=== PATIENT | male | born 1990 | race Caucasian/White ===

== ENCOUNTER 2016-12-08 08:44 | Emergency (ER) | payer OTHER ==
[2016-12-08 09:03] LABS: % IMMATURE GRANULYOCYTES 0.9 % (0.0-1.1); ABSOLUTE IMMATURE GRANULOCYTES 0.17 10^3/uL (0.00-0.10); ADD DIFF? NO; ADD MORPH? NO; ADD SCAN? NO; ATYPICAL LYMPHOCYTE FLAG 10 (0-99); FRAGMENT RBC FLAG 0 (0-99); HEMOGLOBIN 17.8 g/dL (13.7-17.5); LEFT SHIFT FLG 10 (0-99); LIPEMIA HEMOLYSIS FLAG 80 (0-99); MEAN CELL HEMOGLOBIN 33.3 pg (27.9-34.1); MEAN CELL HEMOGLOBIN CONCENTR. 33.6 g/dL (32.4-36.7); MEAN CELL VOLUME 99.3 fL (81.5-99.8); MEAN PLATELET VOLUME 10.3 fL (8.7-11.7); PLATELET CLUMPS FLAG 0 (0-99); PLATELET COUNT 426 10^3/uL (150-400); RED BLOOD CELL COUNT 5.34 10^6/uL (4.40-6.38); RED CELL DISTRIBUTION WIDTH 12.4 % (11.5-15.2)
[2016-12-08] MEDS ORDERED: LET GEL TOPICAL 1 EA SYR TP ONE (09:06)
[2016-12-08 09:21] LABS: ANION GAP 32 mEq/L (8-16); CALCIUM 10.1 mg/dL (8.5-10.4); CARBON DIOXIDE 10 mEq/l (22-31); CHLORIDE 101 mEq/L (97-110); CREATININE 1.3 mg/dL (0.7-1.3); GLOMERULAR FILTRATION RATE > 60; GLUCOSE 261 mg/dL (70-100); POTASSIUM 3.7 mEq/L (3.5-5.2); SODIUM 143 mEq/L (134-144)
--- NOTE | 2016-12-08 09:21 | CPEKG ---
Heart Rate: 108 RR Interval: 556 P-R Interval: 128 QRSD Interval: 76 QT Interval: 336 QTC Interval: 451 P [place]: 62 QRS [place]: 65 T Wave [place]: 48 EKG Severity - OTHERWISE NORMAL ECG - EKG Impression: SINUS TACHYCARDIA EKG Impression: ST ELEV, PROBABLE NORMAL EARLY REPOL PATTERN Electronically Signed By: Kaveh Mosley 08-Dec-2016 09:31:21
--- NOTE | 2016-12-08 09:30 | EDPHY ---
H & P Stated Complaint: AMS, MECH FALL, ABRASIONS - Personal History Current Tetanus/Diphtheria Vaccine: Unsure - Medical/Surgical History Hx Asthma: No Hx Chronic Respiratory Disease: No Hx Diabetes: No Hx Cardiac Disease: No Hx Renal Disease: No Hx Cirrhosis: No Hx Alcoholism: No Hx HIV/AIDS: No Hx Splenectomy or Spleen Trauma: No - Social History Smoking Status: Current every day smoker <Kaveh Mosley - Last Filed: 12/08/16 13:00> <Karlo Strickland - Last Filed: 12/08/16 17:30> Time Seen by Provider: 12/08/16 08:54 HPI/ROS: Chief complaint: Fall History of present illness: This is a 26-year-old male who presents to the emergency department with EMS for evaluation of fall. Patient reports he was standing, smoking a cigarette when he started to get lightheaded and started to fall forward, passed out and struck the front of his body against the ground. Girlfriend her this and came in and saw patient, she was concerned he may have had seizure activity. On my evaluation patient does seem tired. He states he hurts all over. He does admit to drinking alcohol and using cocaine last night. Denies other associated signs or symptoms. Review of systems: A 10 point review of systems was obtained and other than described above was negative (Karlo Strickland) - Physical Exam Exam: General Appearance: Alert, nontoxic. Eyes: Pupils equal and round no pallor or injection. ENT, Mouth: Mucous membranes moist. Respiratory: There are no retractions, lungs are clear to auscultation. Cardiovascular: Regular rate and rhythm. Gastrointestinal: Abdomen is soft and non tender, no masses, bowel sounds normal. Neurological: Alert and oriented x4. Cranial nerves 2-12 grossly intact. Strength and sensation intact and symmetrical. No meningismus. He is ambulating well. Skin: Warm and dry, no rashes. Musculoskeletal: Neck is supple non tender. Extremities are symmetrical, full range of motion. Psychiatric: Patient is oriented X 3, there is no agitation. (Karlo Strickland) Constitutional: Initial Vital Signs Temperature (C) 37.2 C 12/08/16 08:48 Heart Rate 114 H 12/08/16 08:48 Respiratory Rate 16 12/08/16 08:48 Blood Pressure 127/84 H 12/08/16 08:48 O2 Sat (%) 94 12/08/16 08:48 O2 Delivery Mode Room Air Allergies/Adverse Reactions: No Known Allergies Allergy (Unverified 12/08/16 08:48) Home Medications: Medication Instructions Recorded NK [No Known Home Meds] 12/08/16 Medical Decision Making <Kaveh Mosley - Last Filed: 12/08/16 13:00> - Diagnostics Imaging: Discussed imaging studies w/ calliope player Radiologist <Karlo Strickland - Last Filed: 12/08/16 17:30> - Diagnostics EKG Interpretation: EKG: Complete interpretation has been separately recorded in the [employer] archive. Summary impression: Sinus tachycardia, rate 108 (Kaveh Mosley) Imaging Results: Imaging Impressions Cervical Spine CT 12/08/16 08:58 Impression: 1. No definite fracture. 2. If there is persistent pain or neurological deficit, recommend MR cervical spine and consider flexion and extension views, if clinically indicated. Findings and recommendations discussed with Emergency Department physician, RUDY Nelson at 1009 hours at December 08, 2016. Final report concurs with initial preliminary interpretation. Head CT 12/08/16 08:58 Impression: 1. Normal CT brain without contrast. 2. Consider MRI of the brain without and with contrast enhancement, if there is continued clinical concern. Findings and recommendations discussed with Emergency Department physician, RUDY Nelson at 1008 hours December 08, 2016. Final report concurs with initial preliminary interpretation. ED Course/Re-evaluation: Patient seen in conjunction with my secondary supervising physician Dr. Hernandez Mosley. Patient presents to the emergency department after apparently passing out and falling. Ultimately there is concern patient had a seizure. No significant findings requiring further evaluation of seizures in hospital. He does have multiple abrasions and is complaining of pain at certain sites including his toes, I have offered x-rays but he has declined. I have discussed with patient I am concerned he had a seizure. He knows he has to follow-up with Neurology. We have discussed seizure precautions. With his permission I have discussed findings with his parents and his girlfriend, and they will help arrange follow-up. Patient voiced understanding and agreement with plan. (Karlo Strickland) Differential Diagnosis: Included but not limited to mechanical fall, syncope of multiple etiologies including hypovolemia, drug abuse, cardiac dysrhythmia, electrolyte disturbances , seizures of multiple etiologies (Karlo Strickland) Other Provider: INDEPENDENT PHYSICIAN DOCUMENTATION I evaluated and participated in the management of the patient. I also evaluated the patient independently. My co-signature indicates that I have reviewed this chart and I agree with the findings and plan of care as documented. My personal H&P findings include: Patient presents to the emergency department after unwitnessed seizure verses syncopal episode. The patient reportedly was standing smoking a cigarette when he collapsed falling forward striking his lip. The patient presents to the ED with complaints of pain and swelling to his lip, slight headache and a sensation of generalized malaise. The patient does report not having much to eat or drink over the past day. The patient reportedly was "up dancing all night." The patient does report using cocaine last night. PHYSICAL EXAM General Appearance: Alert, no distress Head: Soft tissue swelling noted to upper lip, multiple superficial abrasions, no hematoma Eyes: Pupils equal, round, reactive ENT, Mouth: No hemotympanum, no oral trauma, no gingival laceration Neck: Nontender, trachea midline Respiratory: No chest wall tender, subcutaneous air, lungs clear bilaterally Cardiovascular: Regular rate and rhythm Abdomen: Abdomen is soft and nontender, pelvis stable Skin: Superficial abrasions Back: No midline T/L/S pain Extremities: Nontender, full range of motion Neurological: A&Ox3, normal motor function, normal sensory exam The patient had an IV established. The patient received a L normal saline. The patient's EKG demonstrates no evidence of an arrhythmia. Given his complaints of headache, syncope and trauma, a CT scan of the brain was ordered. CT head demonstrates no evidence of intracranial hemorrhage. The patient does have evidence of a metabolic acidosis which does favor the diagnosis of seizure over syncope. The patient did seem to be somewhat postictal upon arrival. The patient did admit to using cocaine last night. The patient will be discharged home with customary aftercare and return precautions. He was observed in the ED without any recurrent seizure activity. The patient has been instructed not to drive or participate in dangerous activities until cleared to do so by Neurology. He is also cautioned not to use drugs such as cocaine as they put him at significant risk for recurrent seizure, stroke, heart attack and even . (Kaveh Mosley) - Data Points Laboratory Results: Laboratory Results 12/08/16 Unknown 12/08/16 Unknown 12/08/16 12/08/16 12/08/16 Unknown Unknown 11:15 WBC 19.10 10^3/uL H 10^3/uL (3.80-9.50) RBC 5.34 10^6/uL 10^6/uL (4.40-6.38) Hgb 17.8 g/dL H g/dL (13.7-17.5) Hct 53.0 % H % (40.0-51.0) MCV 99.3 fL fL (81.5-99.8) MCH 33.3 pg pg (27.9-34.1) MCHC 33.6 g/dL g/dL (32.4-36.7) RDW 12.4 % % (11.5-15.2) Plt Count 426 10^3/uL H 10^3/uL (150-400) MPV 10.3 fL fL (8.7-11.7) Neut % (Auto) 64.4 % % (39.3-74.2) Lymph % (Auto) 26.8 % % (15.0-45.0) [place] % (Auto) 6.6 % % (4.5-13.0) Eos % (Auto) 0.6 % % (0.6-7.6) Baso % (Auto) 0.7 % % (0.3-1.7) Nucleat RBC Rel Count 0.0 % % (0.0-0.2) Absolute Neuts (auto) 12.28 10^3/uL H 10^3/uL (1.70-6.50) Absolute Lymphs (auto) 5.12 10^3/uL H 10^3/uL (1.00-3.00) Absolute Monos (auto) 1.27 10^3/uL H 10^3/uL (0.30-0.80) Absolute Eos (auto) 0.12 10^3/uL 10^3/uL (0.03-0.40) Absolute Basos (auto) 0.14 10^3/uL H 10^3/uL (0.02-0.10) Absolute Nucleated RBC 0.00 10^3/uL 10^3/uL (0-0.01) Immature Gran % 0.9 % % (0.0-1.1) Immature Gran # 0.17 10^3/uL H 10^3/uL (0.00-0.10) Sodium 143 mEq/L mEq/L (134-144) Potassium 3.7 mEq/L mEq/L (3.5-5.2) Chloride 101 mEq/L mEq/L (97-110) Carbon Dioxide 10 mEq/l L mEq/l (22-31) Anion Gap 32 mEq/L H mEq/L (8-16) BUN 9 mg/dL mg/dL (7-23) Creatinine 1.3 mg/dL mg/dL (0.7-1.3) Estimated GFR > 60 Glucose 261 mg/dL H mg/dL (70-100) Calcium 10.1 mg/dL mg/dL (8.5-10.4) Urine Opiates Screen NEGATIVE (NEGATIVE) Urine Barbiturates NEGATIVE (NEGATIVE) Ur Phencyclidine Scrn NEGATIVE (NEGATIVE) Ur Amphetamine Screen NEGATIVE (NEGATIVE) U Benzodiazepines Scrn NON-NEGATIVE H (NEGATIVE) Urine Cocaine Screen NON-NEGATIVE H (NEGATIVE) U Marijuana (THC) Screen NON-NEGATIVE H (NEGATIVE) Ethyl Alcohol 12/08/16 09:45 WBC RBC Hgb Hct MCV MCH MCHC RDW Plt Count MPV Neut % (Auto) Lymph % (Auto) [place] % (Auto) Eos % (Auto) Baso % (Auto) Nucleat RBC Rel Count Absolute Neuts (auto) Absolute Lymphs (auto) Absolute Monos (auto) Absolute Eos (auto) Absolute Basos (auto) Absolute Nucleated RBC Immature Gran % Immature Gran # Sodium Potassium Chloride Carbon Dioxide Anion Gap BUN Creatinine Estimated GFR Glucose Calcium Urine Opiates Screen Urine Barbiturates Ur Phencyclidine Scrn Ur Amphetamine Screen U Benzodiazepines Scrn Urine Cocaine Screen U Marijuana (THC) Screen Ethyl Alcohol < 10 mg/dL mg/dL (0-10) Medications Given: Discontinued Medications Sodium Chloride (Ns) 1,000 mls @ 0 mls/hr IV ONCE ONE PRN Reason: Wide Open Stop: 12/08/16 09:33 Last Admin: 12/08/16 09:33 Dose: 1,000 mls Departure <Kaveh Mosley - Last Filed: 12/08/16 13:00> <Karlo Strickland - Last Filed: 12/08/16 17:30> - Departure Disposition: Home, Routine, Self-Care Clinical Impression: Abrasions of multiple sites, Hyperglycemia Syncope Qualifiers: Syncope type: unspecified Qualified Code(s): R55 - Syncope and collapse Condition: Good Instructions: Syncope (ED), New-Onset Seizure in Adults (ED) Additional Instructions: Please follow-up with a primary care doctor and neurologist for continued evaluation and care Please have your sugars recheck Stop using cocaine We are concerned you had a seizure today. You must maintain seizure precautions until cleared by Neurology or your primary care doctor. This includes no driving, no bathing, no swimming, do not perform any activities where if you had another episode like you had today could result in injury or to yourself or other people If symptoms worsen or new symptoms develop return to the emergency room for recheck Referrals: Patient,NotPresent [Unknown] - As per Instructions [facility],. [Clinic] - As per Instructions Topher Francois MD [Medical Doctor] - As per Instructions
[2016-12-08] MEDS ORDERED: NS 1,000 ML IV ONE (09:32)
[2016-12-08 09:59] LABS: ETHANOL SERUM < 10 mg/dL (0-10)
[2016-12-08 11:18] VITALS: BP 132/78; PULSE 98; RESP 17; TEMP 98.8; O2SAT 94
== END 2016-12-08 11:17 | disposition home or self-care (01) ==
DX: T14.8 Other injury of unspecified body region (principal); R55 Syncope and collapse; R73.9 Hyperglycemia, unspecified; F17.210 Nicotine dependence, cigarettes, uncomplicated; W18.39XA Other fall on same level, initial encounter
CPT/HCPCS: 80305; G0480